=== PATIENT | female | born 1995 | race Hispanic/Latino ===

== ENCOUNTER 2024-09-22 12:41 | Emergency (ER) | payer SELFPAY ==
[2024-09-22 12:51] VITALS: BP 130/95
[2024-09-22] MEDS: GENOPTIC 0.3% EYE DROPS 1 DROP OPHTH (15:45)
--- NOTE | 2024-09-22 15:45 | ED.SKININJ ---
HPI-Injury
General
Chief Complaint: Eye Problems
Source: patient
Exam Limitations: none
Time Seen by Provider: 09/22/24 15:13
History of Present Illness-Injury
Initial Injury comments:
28-year-old female presents for evaluation for right eye discomfort. She works at a [employer]. She feels as though there is a piece of glass stuck in her eye. She was seen at the urgent care and sent here for further evaluation. She wears
glasses.
Phy Exam
Physical Exam
Physical Exam:
General: Well-appearing female no acute respiratory distress
HEENT: Normocephalic
Eye exam. Right eye examined with fluorescein stain and Vieyra lamp. There is a small abrasion noted over the superior aspect of the cornea. The superior lid was everted. There is a retained foreign body on the mucosal surface of the upper lid.
The lower lid was without foreign bodies.
Skin: Surrounding skin is without erythema
Course
Orders/Labs/Results
Orders:
Orders
09/22/24 15:26
Fluorescein Sodium [Ful-Elina] 2 mg .ROUTE .STK-MED ONE
Tetracaine HCl [Tetracaine 0.5% Ophthalmic Solution] 1 drop .ROUTE .STK-MED ONE
09/22/24 15:27
Purified Water Eye Wash [Dacriose Eye Wash Solution] 120 ml .ROUTE .STK-MED ONE
09/22/24 15:28
Gentamicin [Genoptic 0.3% Eye Drops] See Dose Instructions OPHTH NOW STA
Vital Signs
Initial and Last Documented VS:
Initial Vital Signs
Temp Pulse Resp BP Pulse Ox
97.8 F 73 16 130/95 98
09/22/24 12:51 09/22/24 12:51 09/22/24 12:51 09/22/24 12:51 09/22/24 12:51
Last Documented Vital Signs
Temp Pulse Resp BP Pulse Ox
97.8 F 73 16 130/95 98
09/22/24 12:51 09/22/24 12:51 09/22/24 12:51 09/22/24 12:51 09/22/24 12:51
MDM/Problems Addressed
Differential Diagnosis Includes:
Foreign body right eye. This was easily removed with a moistened cotton swab. Reexam after this was removed provides no further foreign body. Started on gentamicin drops. Stable for discharge
*Critical Care Note
Total Time (30-74mins, 75-104mins- exclusive of procedures): Not Applicable
ED Attending Note
-
Portions of this chart may have been created with voice recognition software.� Occasional wrong word or��sound alike� substitutions may have occurred due to the inherent limitations of voice recognition software.
Discharge Plan
Departure
Patient Disposition: Home (Routine Discharge)
Date of Disposition: 09/22/24
Time of Disposition: 15:52
Patient with high blood pressure during this ER visit?: No
Discharge Problem:
Foreign body in eye
Instructions: Foreign Body in Eye (DC)
Referrals:
NONE,* [Family Provider] -
Activity Restrictions/Additional Instructions:
Use 1 drop every 4 hours while awake. You may take Tylenol or ibuprofen for pain. Return here if worse otherwise follow-up with eye doctor
Interventions
Interventions:
*Risk Screen - Suicide Last Done: 09/22/24 12:51
*Neglect/Abuse Screening Last Done: 09/22/24 12:51
Discharge Date and Time
Print Language: [id number]
== END 2024-09-22 16:21 | disposition home or self-care (01) ==
LOC: EMR 12:41
PROVIDERS: EMERGENCY PHYSICIAN Student in an Organized Health Care Education/Training Program
DX: T15.90XA Foreign body on external eye, part unspecified, unspecified eye, initial encounter (principal); W44.9XXA Unspecified foreign body entering into or through a natural orifice, initial encounter
CPT/HCPCS: 99282